=== PATIENT | female | born 1945 | race Caucasian/White ===

== ENCOUNTER 2017-06-26 13:17 | Emergency (ER) | payer MEDICARE, SELFPAY ==
--- NOTE | 2017-06-26 13:42 | ED.NEUROSD ---
HPI - Neuro Symptoms/Deficit General Chief Complaint: Neuro Symptoms/Deficit Stated Complaint: PATIENT STATES STROKE Time Seen by Provider: 06/26/17 13:41 Source: patient and family Mode of arrival: ambulatory Limitations: no limitations History of Present Illness HPI Narrative: 71-year-old female brought in by a family member is for concerns of a possible stroke. Patient's family is at bedside he states that earlier today they contacted the patient and they reported that the patient was repeating herself and not answering their questions appropriately. They state that the patient seemed confused. Initially denied drinking any alcohol however they were initially thinking that this was the issue. Upon arrival patient states that she does not remember the conversations. She states that she did have some drinks this morning. No trauma. No prior history of stroke. Related Data Home Medications Medication Instructions Recorded Confirmed ASPIRIN (Aspir-Low) 81 mg PO #0 01/05/12 Previous Rx's Medication Instructions Recorded metoprolol succinate 100 mg PO QDAY #90 tab 12/23/16 diltiazem HCl 60 mg PO QID #360 tab 02/03/17 ciprofloxacin HCl [Cipro] 500 mg PO BID #20 tab 03/07/17 metronidazole [Flagyl] 500 mg PO TID #30 03/07/17 pravastatin [Pravachol] 20 mg PO HS #90 tab 04/10/17 lisinopril 40 mg PO QDAY #90 tab 04/24/17 quetiapine 50 - 100 mg PO HS #60 tab 06/07/17 Allergies Allergy/AdvReac Type Severity Reaction Status Date / Time adhesive Allergy Mild FROM TAPE Verified 06/26/17 14:31 Review of Systems Constitutional Denies chills, Denies fever(s), Denies lethargy and Denies weakness ENT Ears, Nose, Mouth, and Throat: Denies dizziness Cardiovascular Denies chest pain, Denies irregular heart rhythm, Denies lightheadedness, Denies palpitations, Denies dyspnea, Denies dyspnea on exertion and Denies orthopnea Respiratory Denies cough, Denies dyspnea, Denies dyspnea on exertion and Denies wheezing Musculoskeletal Denies abnormal gait Integumentary/Breasts Denies pruritus, Denies erythema, Denies rash and Denies wounds Neurologic Reports abnormal speech, Denies abnormal gait, Reports behavioral changes, Reports confusion, Denies dizziness and Denies weakness Psychiatric Reports behavioral changes and Reports confusion Endocrine Denies palpitations Hematologic/Lymphatic Denies easy bruising Allergic/Immunologic Denies wheezing PFSH Surgical History History of spinal fusion S/P total abdominal hysterectomy and bilateral salpingo-oophorectomy Status post appendectomy Status post breast augmentation Family History Father CAD (coronary artery disease) Pacemaker Mother Lung cancer Grandfather Intestinal cancer Sister Ovarian cancer, Onset Age: 65 Sister Melanoma Social History Smoking Status: Former smoker Exam Initial Vital Signs Initial Vital Signs: Vital Signs Temperature 98 F 06/26/17 13:43 Pulse Rate 73 06/26/17 13:43 Respiratory Rate 20 06/26/17 13:43 Blood Pressure 175/82 H 06/26/17 13:43 Pulse Oximetry 95 06/26/17 13:43 HENMT Head: normocephalic and atraumatic Ears: external ears normal and TM's normal bilaterally Nose: external nose normal and No nasal discharge Face and sinus: sinuses nontender, face symmetric, no sinus tenderness and No dry mucous membranes Mouth: oral mucosae normal and moist mucous membranes Teeth and gingiva: dentition normal Throat: tonsils normal and uvula midline Resp Effort & Inspection: normal respiratory effort, able to speak in complete sentences, no respiratory distress and no use of accessory muscles Auscultation: clear to auscultation bilaterally, no rales, no rhonchi and no wheezes Cardio Rate: regular rate Rhythm: regular rhythm Heart Sounds: no click, no gallops, no murmurs and no rubs Pulses: normal peripheral pulses Skin General: no rashes or lesions noted, No jaundice and No petechiae Neuro General: alert, awake, oriented x3, gait normal and moves all extremities Cranial Nerves: CN's II-XI intact bilaterally Cognition: normal cognition Speech: speech normal Gait: normal gait Motor: muscle tone normal throughout and strength 5/5 throughout Sensory Exam: no sensory deficits noted Extrem General: full ROM, no clubbing, cyanosis or edema, no pedal edema and no calf tenderness Course Orders Ordered: ED Orders 06/26/17 13:49 CT head/brain wo con Stat 06/26/17 14:15 Complete Blood Count AUTO DIFF Stat Comprehensive Metabolic Panel Stat Ethanol (ETOH) Stat Partial Thromboplastin Time Stat Prothrombin Time INR Stat 06/26/17 14:25 Ammonia (NH3) Stat Discontinued Medications Sodium Chloride (Normal Saline 0.9%) 1,000 mls @ 150 mls/hr IV CONT FLORY Last Infusion: 06/26/17 15:12 Dose: 150 mls/hr Admin: 06/26/17 14:32 Dose: 150 mls/hr Vital Signs - 8 hr 06/26/17 13:43 06/26/17 15:16 Temperature 98 F 98 F Pulse Rate 73 74 Respiratory Rate 20 20 Blood Pressure 175/82 H 168/59 H Blood Pressure [Left Arm] 175/82 H Pulse Oximetry 95 94 MDM - Neuro Symptoms/Deficit Lab Data Attestation: I reviewed the patient's lab results. Result diagrams: 06/26/17 14:15 06/26/17 14:15 Lab Results 06/26/17 06/26/17 06/26/17 Range/Units 14:15 14:15 14:15 WBC 8.4 (4.5-11.0) X10^3/uL RBC 5.07 (4.0-5.2) X10^6/uL Hgb 16.1 H (12.0-16.0) g/dL Hct 46.4 H (36-46) % MCV 91.6 (80-100) fL MCH 31.7 (26-34) PG MCHC 34.6 (30-36) % RDW 14.2 (11.6-14.8) % Plt Count 116 L (150-400) X10^3/uL Neut % (Auto) Not Reportable Lymph % (Auto) Not Reportable Towner % (Auto) Not Reportable Eos % (Auto) Not Reportable Baso % (Auto) Not Reportable Total Counted 100 Seg Neutrophils % 23.0 L (38-70) % Lymphocytes % (Manual) 65.0 H (25-45) % Atypical Lymphs % 4.0 H ( - 0) % Monocytes % (Manual) 7.0 (2-11) % Eosinophils % (Manual) 1.0 L (2-4) % Neutrophils # (Manual) 1932 L (6302-4116) /uL Differential Comment Platelet clumping RBC Morphology Not Reportable PT 11.7 (10.1-12.7) SECONDS INR 1.1 (0.9-1.3) APTT 26 L (26.4-36.2) SECONDS Sodium 146 H (137-145) mmol/L Potassium 4.1 (3.4-5.1) mmol/L Chloride 104.0 (98-107) mmol/L Carbon Dioxide 29.0 (22-32) mmol/L BUN 15.0 (7-17) mg/dL Creatinine 0.60 (0.52-1.04) mg/dL Estimated GFR > 60.0 (>60) mL/min BUN/Creatinine Ratio 25.0 H (6-22) Glucose 93 (80-110) mg/dL Calcium 9.3 (8.4-10.2) mg/dL Total Bilirubin 0.4 (0.2-1.3) mg/dL AST 33 (14-36) IU/L ALT 36 (9-52) IU/L Alkaline Phosphatase 72 (38-126) U/L Ammonia (9-30) umol/L Total Protein 7.9 (6.3-8.2) g/dL Albumin 4.3 (3.5-5.0) g/dL Globulin 3.6 (1.7-4.1) g/dL Albumin/Globulin Ratio 1.2 (1.0-2.8) Ethyl Alcohol 204 mg/dL / Range/Units 14:25 WBC (4.5-11.0) X10^3/uL RBC (4.0-5.2) X10^6/uL Hgb (12.0-16.0) g/dL Hct (36-46) % MCV (80-100) fL MCH (26-34) PG MCHC (30-36) % RDW (11.6-14.8) % Plt Count (150-400) X10^3/uL Neut % (Auto) Lymph % (Auto) Towner % (Auto) Eos % (Auto) Baso % (Auto) Total Counted Seg Neutrophils % (38-70) % Lymphocytes % (Manual) (25-45) % Atypical Lymphs % ( - 0) % Monocytes % (Manual) (2-11) % Eosinophils % (Manual) (2-4) % Neutrophils # (Manual) (2769-6111) /uL Differential Comment RBC Morphology PT (10.1-12.7) SECONDS INR (0.9-1.3) APTT (26.4-36.2) SECONDS Sodium (137-145) mmol/L Potassium (3.4-5.1) mmol/L Chloride (98-107) mmol/L Carbon Dioxide (22-32) mmol/L BUN (7-17) mg/dL Creatinine (0.52-1.04) mg/dL Estimated GFR (>60) mL/min BUN/Creatinine Ratio (6-22) Glucose (80-110) mg/dL Calcium (8.4-10.2) mg/dL Total Bilirubin (0.2-1.3) mg/dL AST (14-36) IU/L ALT (9-52) IU/L Alkaline Phosphatase (38-126) U/L Ammonia 22.0 (9-30) umol/L Total Protein (6.3-8.2) g/dL Albumin (3.5-5.0) g/dL Globulin (1.7-4.1) g/dL Albumin/Globulin Ratio (1.0-2.8) Ethyl Alcohol mg/dL Imaging Data CT scan - head: Radiologist's impression: PROCEDURE: CT HEAD/BRAIN WO CON INDICATIONS: Altered mental status TECHNIQUE: Noncontrast 4.5 mm thick angled axial sections acquired from the foramen magnum to the vertex, with coronal and sagittal reformats. For radiation dose reduction, the following was used: automated exposure control, adjustment of mA and/or kV according to patient size. COMPARISON: None. FINDINGS: Image quality: Excellent. CSF spaces: Basal cisterns are patent. No extra-axial fluid collections. The ventricles are symmetric in size and shape. Brain: No intracranial bleeds or masses. There is cerebral volume loss for age, with resultant ventricular and sulcal prominence. There are periventricular and deep white matter chronic small vessel ischemic changes. There is intracranial internal carotid artery atherosclerosis. Skull and face: Calvarium and visualized facial bones appear intact, without suspicious lesions. Sinuses: Visualized sinuses and mastoids are clear. IMPRESSION: No acute intracranial disease process. Dictated by: Gaby Davila MD, PhD on 06/26/2017 at 13:09 MDM Narrative Medical decision making narrative: Patient had a normal neurologic exam at the time of my exam. Was alert and oriented. Head CT is unremarkable. Does have an elevated alcohol level. Secondary to the patient's history and physical exam I suspect that her slurring of her words earlier today was the result of an alcohol intoxication. Had a long discussion with the patient and her family regarding an acute admission for alcohol detox. Patient declined this offer and states that she would go home with her sister who was at bedside. The sister agreed to take the patient home and watch her and talk with the primary doctor about further evaluation. They are given return precautions. Will hold on further workup for now. No indication for admission. Exam is not consistent with TIA. Discharge Plan Departure Patient Disposition: Home, Self-Care Clinical Impression: Alcohol intoxication Discharge Date/Time: 06/26/17 15:17 Interventions: ED Discharge Assessment Last Done: 06/26/17 15:16 Instructions: Alcoholism (Alternative Therapy), Alcohol Use Disorder, DI for Alcohol Abuse Activity Restrictions/Additional Instructions: You are not to drive for the next 24 hr or in the future if you consume intoxicating substances. You are being discharged today under the care of your family. Highly recommend that you seek help for your alcohol use. You may return to the emergency department for any new or worsening symptoms Prescriptions: No Action ASPIRIN (Aspir-Low) 81 mg PO Qty: 0 RF: 0 metoprolol succinate 100 MG tablet extended release 24 hr 100 mg PO QDAY Qty: 90 RF: 1 diltiazem HCl 60 MG tablet 60 mg PO QID Qty: 360 RF: 1 metronidazole [Flagyl] 500 MG tablet 500 mg PO TID Qty: 30 RF: 0 ciprofloxacin HCl [Cipro] 500 MG tablet 500 mg PO BID Qty: 20 RF: 0 pravastatin [Pravachol] 20 MG tablet 20 mg PO HS Qty: 90 RF: 0 lisinopril 40 MG tablet 40 mg PO QDAY Qty: 90 RF: 0 quetiapine 50 mg tablet 50 - 100 mg PO HS Qty: 60 RF: 6
[2017-06-26 13:43] VITALS: BP 175/82; PULSE 73; RESP 20; TEMP 36.6; O2SAT 95
--- NOTE | 2017-06-26 13:49 | DI.CT.S_ITS ---
PROCEDURE: CT HEAD/BRAIN WO CON INDICATIONS: Altered mental status TECHNIQUE: Noncontrast 4.5 mm thick angled axial sections acquired from the foramen magnum to the vertex, with coronal and sagittal reformats. For radiation dose reduction, the following was used: automated exposure control, adjustment of mA and/or kV according to patient size. COMPARISON: None. FINDINGS: Image quality: Excellent. CSF spaces: Basal cisterns are patent. No extra-axial fluid collections. The ventricles are symmetric in size and shape. Brain: No intracranial bleeds or masses. There is cerebral volume loss for age, with resultant ventricular and sulcal prominence. There are periventricular and deep white matter chronic small vessel ischemic changes. There is intracranial internal carotid artery atherosclerosis. Skull and face: Calvarium and visualized facial bones appear intact, without suspicious lesions. Sinuses: Visualized sinuses and mastoids are clear. IMPRESSION: No acute intracranial disease process. Dictated by: Gaby Davila MD, PhD on 06/26/2017 at 13:09 Approved by: Gaby Davila MD, PhD on 06/26/2017 at 13:13
[2017-06-26 14:22] LABS: Hematocrit 46.4 % (36-46); Hemoglobin 16.1 g/dL (12.0-16.0); Mean Corpuscular HGB Conc 34.6 % (30-36); Mean Corpuscular Hemoglobin 31.7 PG (26-34); Mean Corpuscular Volume 91.6 fL (80-100); Platelet Count 116 X10^3/uL (150-400); Red Blood Cell Count 5.07 X10^6/uL (4.0-5.2); Red Cell Distribution Width 14.2 % (11.6-14.8); White Blood Cell Count 8.4 X10^3/uL (4.5-11.0)
[2017-06-26 14:23] LABS: Add Manual Diff / Slide Review YES
[2017-06-26 14:26] LABS: INR 1.1 (0.9-1.3); Prothrombin Time 11.7 SECONDS (10.1-12.7)
[2017-06-26 14:28] LABS: PTT Partial Thromboplastin Tim 26 SECONDS (26.4-36.2)
[2017-06-26] MEDS: SODIUM CHLORIDE 0.9% 1,000 ML 150 ML IV (14:32)
[2017-06-26 14:36] LABS: Alanine Aminotransferase 36 IU/L (9-52); Albumin 4.3 g/dL (3.5-5.0); Albumin Globulin Ratio 1.2 (1.0-2.8); Alkaline Phosphatase 72 U/L (38-126); Aspartate Aminotransferase 33 IU/L (14-36); Bilirubin Total 0.4 mg/dL (0.2-1.3); Calcium 9.3 mg/dL (8.4-10.2); Estimated Glomerular Filt Rate > 60.0 mL/min (>60); Ethanol (ETOH) 204 mg/dL; Globulin 3.6 g/dL (1.7-4.1); Glucose 93 mg/dL (80-110); HEMOLYSIS < 15 (0-50); Potassium 4.1 mmol/L (3.4-5.1); Sodium 146 mmol/L (137-145); Total Protein 7.9 g/dL (6.3-8.2)
[2017-06-26 14:40] LABS: Neutrophils Absolute Manual 1932 /uL (3000-5900); Total Cells Counted 100
[2017-06-26 14:41] LABS: Morphology Comment PLATELET CLUMPING
[2017-06-26 15:16] VITALS: BP 168/59; PULSE 74; RESP 20; TEMP 36.6; O2SAT 94
== END 2017-06-26 15:17 | disposition home or self-care (01) ==
PROVIDERS: Emergency Provider Emergency Medicine; PCP Internal Medicine
DX: F10.929 Alcohol use, unspecified with intoxication, unspecified (principal)
CPT/HCPCS: 36415; 36591; 70450; 80053; 80320; 82140; 85025; 85610; 85730; 96360; 99283; 99284; 99291

== ENCOUNTER → 2017-07-04 09:49 | Outpatient (CLI) | payer MEDICARE, SELFPAY | PROVIDERS: PCP Internal Medicine; Visit Provider Student in an Organized Health Care Education/Training Program | DX: I10 Essential (primary) hypertension (principal); E78.5 Hyperlipidemia, unspecified; Z53.9 Procedure and treatment not carried out, unspecified reason ==

== ENCOUNTER → 2017-07-05 08:34 | Outpatient (CLI) | payer MEDICARE, SELFPAY ==
[2017-07-05 09:32] LABS: Add Manual Diff / Slide Review NO; Eosinophils Percent Auto 1.6 % (2-4); Hematocrit 44.6 % (36-46); Hemoglobin 15.3 g/dL (12.0-16.0); Mean Corpuscular HGB Conc 34.3 % (30-36); Mean Corpuscular Hemoglobin 31.3 PG (26-34); Mean Corpuscular Volume 91.3 fL (80-100); Monocytes Percent Auto 9.8 % (3-14); Neutrophils Absolute Auto 4400 /uL (3000-5900); Neutrophils Percent Auto 58.6 % (50-75); Platelet Count 260 X10^3/uL (150-400); Red Blood Cell Count 4.89 X10^6/uL (4.0-5.2); White Blood Cell Count 7.5 X10^3/uL (4.5-11.0)
[2017-07-05 09:56] LABS: Alanine Aminotransferase 26 IU/L (9-52); Albumin 4.4 g/dL (3.5-5.0); Albumin Globulin Ratio 1.4 (1.0-2.8); Alkaline Phosphatase 68 U/L (38-126); Aspartate Aminotransferase 25 IU/L (14-36); BUN Creatinine Ratio 25.7 (6-22); Bilirubin Total 0.5 mg/dL (0.2-1.3); Blood Urea Nitrogen 18 mg/dL (7-17); Calcium 10.5 mg/dL (8.4-10.2); Carbon Dioxide 29 mmol/L (22-32); Chloride 98 mmol/L (98-107); Cholesterol 163 mg/dL (140-199); Estimated Glomerular Filt Rate > 60.0 mL/min (>60); Globulin 3.2 g/dL (1.7-4.1); Glucose 105 mg/dL (80-110); HDL Cholesterol 47 mg/dL (40-60); HEMOLYSIS < 15 (0-50); LDL Cholesterol Calculated 92 mg/dL (<100); Potassium 4.7 mmol/L (3.4-5.1); Sodium 139 mmol/L (137-145); Total Protein 7.6 g/dL (6.3-8.2); Triglycerides 118 mg/dL (35-150)
== END ==
PROVIDERS: PCP Internal Medicine; Visit Provider Student in an Organized Health Care Education/Training Program
DX: I10 Essential (primary) hypertension (principal); E78.5 Hyperlipidemia, unspecified
CPT/HCPCS: 36415; 80053; 80061; 85025

== ENCOUNTER → 2019-02-18 13:20 | Outpatient (CLI) | payer MEDICARE, SELFPAY ==
[2019-02-18 15:10] LABS: Add Manual Diff / Slide Review NO; Basophils Absolute Auto 100 /uL (0-100); Eosinophils Absolute Auto 100 /uL (0-450); Eosinophils Percent Auto 1.4 % (2-4); Hematocrit 48.6 % (36-46); Hemoglobin 16.6 g/dL (12.0-16.0); Lymphocytes Absolute Auto 2400 /uL (1100-4500); Lymphocytes Percent Auto 26.3 % (25-40); Mean Corpuscular HGB Conc 34.1 % (30-36); Mean Corpuscular Hemoglobin 31.8 PG (26-34); Mean Corpuscular Volume 93.2 fL (80-100); Monocytes Absolute Auto 800 /uL (0-900); Monocytes Percent Auto 9.1 % (3-14); Neutrophils Absolute Auto 5700 /uL (1500-7000); Neutrophils Percent Auto 62.2 % (50-75); Platelet Count 328 X10^3/uL (150-400); Red Blood Cell Count 5.22 X10^6/uL (4.0-5.2); Red Cell Distribution Width 13.5 % (11.6-14.8); White Blood Cell Count 9.2 X10^3/uL (4.5-11.0)
[2019-02-18 16:01] LABS: Alanine Aminotransferase 33 IU/L (<35); Albumin 4.6 g/dL (3.5-5.0); Albumin Globulin Ratio 1.5 (1.0-2.8); Alkaline Phosphatase 99 U/L (38-126); Aspartate Aminotransferase 33 IU/L (14-36); BUN Creatinine Ratio 27.1 (6-22); Bilirubin Total 0.6 mg/dL (0.2-1.3); Blood Urea Nitrogen 19 mg/dL (7-17); Calcium 10.8 mg/dL (8.4-10.2); Carbon Dioxide 29 mmol/L (22-32); Chloride 101 mmol/L (98-107); Cholesterol 206 mg/dL (140-199); Estimated Glomerular Filt Rate > 60.0 mL/min (>60); Globulin 3.1 g/dL (1.7-4.1); Glucose 95 mg/dL (80-110); HDL Cholesterol 39 mg/dL (40-60); HEMOLYSIS < 15 (0-50); LDL Cholesterol Calculated 138 mg/dL (<100); Potassium 4.8 mmol/L (3.4-5.1); Sodium 140 mmol/L (137-145); Total Protein 7.7 g/dL (6.3-8.2); Triglycerides 147 mg/dL (35-150)
== END ==
PROVIDERS: PCP Internal Medicine; Visit Provider Student in an Organized Health Care Education/Training Program
DX: I10 Essential (primary) hypertension (principal); E78.5 Hyperlipidemia, unspecified
CPT/HCPCS: 36415; 80053; 80061; 85025

== ENCOUNTER → 2019-05-20 07:51 | Outpatient (CLI) | payer MEDICARE, SELFPAY ==
[2019-05-20 09:13] LABS: Add Manual Diff / Slide Review NO; Basophils Absolute Auto 0 /uL (0-100); Basophils Percent Auto 0.5 % (0-2); Eosinophils Absolute Auto 200 /uL (0-450); Eosinophils Percent Auto 1.9 % (2-4); Hematocrit 46.1 % (36-46); Hemoglobin 15.3 g/dL (12.0-16.0); Lymphocytes Absolute Auto 2800 /uL (1100-4500); Lymphocytes Percent Auto 33.5 % (25-40); Mean Corpuscular HGB Conc 33.2 % (30-36); Mean Corpuscular Hemoglobin 30.8 PG (26-34); Mean Corpuscular Volume 92.7 fL (80-100); Monocytes Absolute Auto 600 /uL (0-900); Monocytes Percent Auto 6.9 % (3-14); Neutrophils Absolute Auto 4800 /uL (1500-7000); Neutrophils Percent Auto 57.2 % (50-75); Platelet Count 307 X10^3/uL (150-400); Red Blood Cell Count 4.97 X10^6/uL (4.0-5.2); Red Cell Distribution Width 13.1 % (11.6-14.8); White Blood Cell Count 8.4 X10^3/uL (4.5-11.0)
[2019-05-20 09:35] LABS: Alanine Aminotransferase 20 IU/L (<35); Albumin 4.3 g/dL (3.5-5.0); Albumin Globulin Ratio 1.3 (1.0-2.8); Alkaline Phosphatase 71 U/L (38-126); Aspartate Aminotransferase 25 IU/L (14-36); BUN Creatinine Ratio 26.7 (6-22); Bilirubin Total 0.5 mg/dL (0.2-1.3); Blood Urea Nitrogen 16 mg/dL (7-17); Carbon Dioxide 29 mmol/L (22-32); Chloride 103 mmol/L (98-107); Cholesterol 176 mg/dL (140-199); Estimated Glomerular Filt Rate > 60.0 mL/min (>60); Globulin 3.4 g/dL (1.7-4.1); Glucose 114 mg/dL (80-110); HDL Cholesterol 32 mg/dL (40-60); HEMOLYSIS < 15 (0-50); LDL Cholesterol Calculated 115 mg/dL (<100); Potassium 3.8 mmol/L (3.4-5.1); Sodium 142 mmol/L (137-145); Total Protein 7.7 g/dL (6.3-8.2); Triglycerides 145 mg/dL (35-150)
== END ==
PROVIDERS: PCP Internal Medicine; Referring Provider Student in an Organized Health Care Education/Training Program; Visit Provider Student in an Organized Health Care Education/Training Program
DX: I10 Essential (primary) hypertension (principal); E78.5 Hyperlipidemia, unspecified
CPT/HCPCS: 36415; 80053; 80061; 85025

== ENCOUNTER → 2019-11-12 09:08 | Outpatient (CLI) | payer MEDICARE, SELFPAY ==
--- NOTE | 2019-11-12 | DI.RAD.S_ITS ---
PROCEDURE: XR CERVICAL SPINE 4V OR 5V INDICATIONS: Cervicalgia TECHNIQUE: 5 views of the cervical spine acquired. COMPARISON: None. FINDINGS: Bones: No fractures or dislocations to the T2 level. There is osseous fusion of C5 through C7. Multilevel spondylitic changes visualized from C2-3 through C4-5 with associated facet arthrosis. Findings are most pronounced at C4-5. C1-C2 relationship is preserved. Oblique images demonstrate mild bony foraminal stenoses involving the fused segments. Soft tissues: No prevertebral soft tissue swelling. IMPRESSION: 1. Cervical spine without acute fracture or dislocation. 2. Multilevel cervical spondylosis most prominent at C4-5. 3. Osseous fusion of C5 through C7 with associated bilateral neuroforaminal narrowing. Dictated by: Rafi Frazier M.D. on 11/12/2019 at 10:04 Approved by: Rafi Frazier M.D. on 11/12/2019 at 10:08
== END ==
PROVIDERS: PCP Student in an Organized Health Care Education/Training Program; Referring Provider Student in an Organized Health Care Education/Training Program; Visit Provider Student in an Organized Health Care Education/Training Program
DX: M54.2 Cervicalgia (principal); M47.812 Spondylosis without myelopathy or radiculopathy, cervical region; M43.22 Fusion of spine, cervical region; M48.02 Spinal stenosis, cervical region
CPT/HCPCS: 72050

== ENCOUNTER → 2020-08-14 16:14 | Outpatient (CLI) | payer OTHER, SELFPAY ==
--- NOTE | 2020-08-14 | DI.RAD.S_ITS ---
PROCEDURE: XR HIP W PEL IF DONE LT 2V INDICATIONS: Left Hip Pain TECHNIQUE: Two views of the hip were acquired. COMPARISON: None. FINDINGS: Moderate left and severe right femoroacetabular osteoarthritis characterized by joint space narrowing and marginal osteophytosis. On the right there is subchondral sclerosis and subchondral cystic changes well as some flattening of the superior femoral head surface. 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 Dictated by: Rod Zamora M.D. on 08/14/2020 at 16:59 Approved by: Rod Zamora M.D. on 08/14/2020 at 16:59
== END ==
PROVIDERS: PCP Student in an Organized Health Care Education/Training Program; Referring Provider Internal Medicine; Visit Provider Internal Medicine
DX: M25.552 Pain in left hip (principal); M16.12 Unilateral primary osteoarthritis, left hip
CPT/HCPCS: 73502

== ENCOUNTER → 2020-11-11 08:32 | Outpatient (CLI) | payer OTHER, SELFPAY ==
--- NOTE | 2020-11-11 | DI.RAD.S_ITS ---
PROCEDURE: XR LUMBAR SPINE 2-3V INDICATIONS: Pain in thoracic spine TECHNIQUE: 3 views of the lumbar spine were acquired. COMPARISON: [facility], CR, L-SPINE 2-3 VIEWS, 09/01/2015, 12:12. [facility], CR, L-SPINE 2-3 VIEWS, 07/16/2013, 14:44. FINDINGS: Bones: 5 [id number] vertebrae are present. There is normal bony alignment. No vertebral body compression fractures. No suspicious bony lesions. There are multilevel degenerative changes. There is disc disease at L4-5 and L5-S1 with disc space narrowing at these levels. Soft tissues: Overlying bowel gas pattern is normal. No suspicious soft tissue calcifications. The aorta has atherosclerotic calcifications. IMPRESSION: Multilevel degenerative changes with disc disease at L4-5 and L5-S1. Dictated by: Dirk Mar M.D. on 11/11/2020 at 10:09 Approved by: Dirk Mar M.D. on 11/11/2020 at 10:11
--- NOTE | 2020-11-11 | DI.RAD.S_ITS ---
PROCEDURE: XR THORACIC SPINE 3V INDICATIONS: Pain in thoracic spine TECHNIQUE: 3 views of the thoracic spine were acquired. COMPARISON: [facility], , THORACIC SPINE 3 VIEWS, 07/16/2013, 14:44. FINDINGS: Bones: No fractures or dislocations. The thoracic spine has multilevel degenerative changes. Disc disease is seen at multi levels. No suspicious bony lesions. 12 pairs of ribs are noted, and appear intact where visualized. Soft tissues: No paravertebral stripe thickening. IMPRESSION: Multilevel degenerative changes of the thoracic spine. There is disc disease at multiple levels. Dictated by: Dirk Mar M.D. on 11/11/2020 at 10:01 Approved by: Dirk Mar M.D. on 11/11/2020 at 10:06
== END ==
PROVIDERS: PCP Student in an Organized Health Care Education/Training Program; Referring Provider Student in an Organized Health Care Education/Training Program; Visit Provider Student in an Organized Health Care Education/Training Program
DX: M51.34 Other intervertebral disc degeneration, thoracic region (principal); M51.36 Other intervertebral disc degeneration, lumbar region; M48.061 Spinal stenosis, lumbar region without neurogenic claudication; M51.37 Other intervertebral disc degeneration, lumbosacral region; M48.07 Spinal stenosis, lumbosacral region
CPT/HCPCS: 72072; 72100

== ENCOUNTER → 2022-04-14 13:38 | Outpatient (CLI) | payer OTHER, SELFPAY ==
--- NOTE | 2022-04-14 | DI.RAD.S_ITS ---
PROCEDURE: XR CERVICAL SPINE 2V OR 3V INDICATIONS: SHOULDER PAIN TECHNIQUE: 3 view(s) of the cervical spine were acquired. COMPARISON: MR, C-SPINE WITHOUT CONTRAST, 09/08/2010, 18:01. [facility], , XR CERVICAL SPINE 4V OR 5V, 11/12/2019, 8:22. FINDINGS: Bones: No fractures or dislocations to the is 7 level. Trace anterolisthesis of C4 on C5. There is fusion of C5-C7. The lateral masses of C1 appear intact on the odontoid view. No suspicious bony lesions. There is moderate degenerative disc disease at C4-C5, and mild degenerative disease at C2-C3 and C3-C4. Bilateral facet arthropathy, most pronounced and severe at C2-C3 on the left and C3-C4 and C4-C5 bilaterally. Soft tissues: No prevertebral soft tissue swelling. IMPRESSION: 1. Severe degenerative changes in cervical spine. 2. Fusion of C5-C7. Dictated by: Leon Cutler M.D. on 04/15/2022 at 8:44 Approved by: Leon Cutler M.D. on 04/15/2022 at 8:56
--- NOTE | 2022-04-14 | DI.RAD.S_ITS ---
PROCEDURE: XR SHOULDER LT MIN 2V INDICATIONS: SHOULDER PAIN TECHNIQUE: 3 views of the shoulder were acquired. COMPARISON: None. FINDINGS: Bones: No fractures or dislocations. Possible surgical resection of the distal clavicle. There is a large osteophyte over the humeral head. There is moderate acromioclavicular and glenoid humeral joint degeneration. No suspicious bony lesions. Visualized ribs appear intact. Soft tissues: Calcifications over the humeral head consistent with rotator cuff calcific tendinitis. IMPRESSION: 1. Moderate degenerative joint disease. If clinical symptoms persist or clinical suspicion for internal derangement is high, MRI is suggested for further evaluation. 2. Rotator cuff calcific tendinitis. Dictated by: Leon Cutler M.D. on 04/15/2022 at 8:32 Approved by: Leon Cutler M.D. on 04/15/2022 at 8:52
== END ==
PROVIDERS: PCP Student in an Organized Health Care Education/Training Program; Referring Provider Student in an Organized Health Care Education/Training Program; Visit Provider Student in an Organized Health Care Education/Training Program
DX: M75.32 Calcific tendinitis of left shoulder (principal); M25.512 Pain in left shoulder; M19.012 Primary osteoarthritis, left shoulder; G89.29 Other chronic pain
CPT/HCPCS: 72040; 73030

== ENCOUNTER → 2023-09-06 10:17 | Outpatient (CLI) | payer MEDICARE, SELFPAY ==
--- NOTE | 2023-09-06 10:19 | DI.RAD.S_ITS ---
PROCEDURE: XR CHEST 2V INDICATIONS: COVID-19 TECHNIQUE: 2 views of the chest were acquired. COMPARISON: [facility], , CHEST 2 VIEW, 03/08/2016, 12:36. FINDINGS: Surgical changes and devices: Bilateral breast implants with calcified capsules. Lungs and pleura: Mild bibasilar hazy opacities. No pleural effusions or pneumothorax. Mediastinum: Mediastinal contours are normal. Heart size is normal. Aortic arthrosclerosis. Bones and chest wall: No suspicious bony abnormalities. Soft tissues appear unremarkable. IMPRESSION: Bibasilar hazy opacities. This may be on the basis of atelectasis and/or infiltrates. Dictated by: Ramy Breen M.D. on 09/06/2023 at 15:52 Approved by: Ramy Breen M.D. on 09/06/2023 at 15:57
== END ==
PROVIDERS: PCP Student in an Organized Health Care Education/Training Program; Referring Provider Student in an Organized Health Care Education/Training Program; Visit Provider Student in an Organized Health Care Education/Training Program
DX: U07.1 COVID-19 (principal); R05.1 Acute cough; I70.0 Atherosclerosis of aorta
CPT/HCPCS: 71046

== ENCOUNTER → 2023-10-11 11:52 | Outpatient (CLI) | payer MEDICARE, SELFPAY ==
--- NOTE | 2023-10-11 11:56 | DI.RAD.S_ITS ---
PROCEDURE: XR HIP W PEL IF DONE LT 2V INDICATIONS: Trochanteric bursitis, left hip TECHNIQUE: AP pelvis with lateral view(s) of the left hip(s). COMPARISON: [facility], , XR HIP W PEL IF DONE LT 2V, 08/14/2020, 16:25. FINDINGS: Bones: No fractures or dislocations. Pelvic ring appears intact. No suspicious bony lesions. Moderate to severe bilateral degenerative hip joint space narrowing most severe on the right. Subchondral sclerosis and periarticular osteophytes are present. No erosions. Degenerative changes are present within the lower lumbar spine. Overall appearance is stable versus minimally progressive. Soft tissues: The visualized bowel gas pattern is normal. No suspicious soft tissue calcifications. IMPRESSION: Stable versus minimally progressive appearance of moderate to severe bilateral hip arthritic change. Dictated by: Noy Linder M.D. on 10/11/2023 at 15:57 Approved by: Noy Linder M.D. on 10/11/2023 at 15:58
== END ==
PROVIDERS: PCP Family Medicine
DX: M70.62 Trochanteric bursitis, left hip (principal)
CPT/HCPCS: 73502

== ENCOUNTER → 2023-11-01 12:08 | Outpatient (CLI) | payer MEDICARE, SELFPAY ==
--- NOTE | 2023-11-01 12:10 | DI.CT.S_ITS ---
PROCEDURE: CT LUNG LOW DOSE SCREENING INDICATIONS: Nicotine dependence, cigarettes, uncomplicated TECHNIQUE: Noncontrast 2.0-2.5 mm thick sections acquired from the pulmonary apices to the posterior costophrenic angles. 7 mm thick axial MIP, and 5 mm coronal and sagittal reformats were then acquired. For radiation dose reduction, the following was used: automated exposure control, adjustment of mA and/or kV according to patient size. COMPARISON: [facility], CT, CT CHEST WITHOUT CONTRAST, 11/24/2017, 13:43. FINDINGS: Image quality: Diagnostic. Lower Neck: No enlarged lymph nodes. Thyroid: No thyroid nodules which require sonographic follow up, per consensus guidelines. Axillae: No enlarged lymph nodes. Chest Wall: Bilateral breast implants with extensive capsular calcifications. Bones: Multilevel degenerative changes in the thoracic spine. Lungs and Pleura: No pneumothorax or pleural effusions. Confluent centrilobular emphysema. Benign calcified granulomas are present. A densely calcified irregular lesion is seen at the medial right lower lobe. Left lower lobe clustered nodules on CT from 11/24/2017 have resolved. No consolidation or suspicious nodules. Heart: Heart size is normal. Trace pericardial effusion. Mild coronary artery calcifications. Thoracic Vessels: The aorta and pulmonary arteries demonstrate normal size. Mediastinum and Ilda: No enlarged lymph nodes. Esophagus: No wall thickening. No hiatal hernia. Upper Abdomen: Visualized upper abdomen solid organs and bowel loops appear normal. IMPRESSION: No suspicious pulmonary nodules. LUNG-RADS 2; continued annual screening, if eligible. Clinically Significant Non-pulmonary Findings: None. Approved by: Doug Davis M.D. on 11/01/2023 at 21:59
== END ==
PROVIDERS: PCP Family Medicine; Referring Provider Family Medicine; Visit Provider Family Medicine
DX: F17.210 Nicotine dependence, cigarettes, uncomplicated (principal); Z12.2 Encounter for screening for malignant neoplasm of respiratory organs; I25.10 Atherosclerotic heart disease of native coronary artery without angina pectoris; J43.2 Centrilobular emphysema
CPT/HCPCS: 71271

== ENCOUNTER 2024-08-12 13:49 | Emergency (ER) | payer MEDICARE, SELFPAY ==
[2024-08-12 14:11] VITALS: BP 167/72; PULSE 75; RESP 18; TEMP 36.8; O2SAT 96; BMI 17.7
--- NOTE | 2024-08-12 15:23 | ED_ITS ---
<Statement entered by Mane Tate, DO - 08/12/24 18:42> Co-Sign Statement I was available for consultation during this patient's emergency department visit. This chart is signed by myself for administrative purposes only. I do not have direct contact with this patient during this visit. They were seen by the APC independently. HPI - Skin/Abscess/Foreign Bdy General Chief complaint: Skin/Abscess/Foreign Body Stated complaint: infected, Rt middle finger Time Seen by Provider: 08/12/24 14:18 Source: patient Mode of arrival: Ambulatory Limitations: no limitations History of Present Illness HPI narrative: This is a 78-year-old woman with a history of dementia who presents with her daughter with concern for finger pain for 7 days. Daughter states that her mom had her nails done on Monday last week and that night she reported that the woman who had done her nails ?hurt her? showing that she bent her finger at the distal joint and press down on her nail causing pain at the base of the nail. Daughter states that the next morning her lower finger (3rd finger on the right hand) looked swollen and there was a little bit of redness at the base of the nail. Since that time symptoms have not improved and patient continues to complain of pain. Patient states that she does not want to bend it because it was more painful when she bends it. Related Data Home Medications ?Medication ?Instructions ?Recorded ?Confirmed ASPIRIN (Aspir-Low) 81 mg PO ##0 01/05/12 Previous Rx's ?Medication ?Instructions ?Recorded diltiazem HCl 60 mg tablet 60 mg PO QID #360 tabs 01/07 10/23 ciprofloxacin HCl 500 mg tablet 500 mg PO BID #20 tabs 03/07/17 (Cipro) metronidazole 500 mg tablet 500 mg PO TID ##30 8 (Flagyl) quetiapine 50 mg tablet 50 - 100 mg (1 - 2 x 50 mg) PO HS 06/07/17 #60 tabs metoprolol succinate 100 mg 100 mg PO QDAY #30 tabs tablet,extended release 24 hr pravastatin 20 mg tablet 20 mg PO HS #30 tabs 8 (Pravachol) lisinopril 40 mg tablet 40 mg PO QDAY #15 tabs 06/17 cephalexin 500 mg capsule 500 mg PO TID 5 days #15 cap s 08/12/24 Allergies Allergy/AdvReac Type Severity Reaction Status Date / Time adhesive Allergy Mild FROM TAPE Verified 08/12/24 14:13 Review of Systems Review of Systems Narrative: See HPI Patient History Surgical History Status post breast augmentation History of spinal fusion Status post appendectomy S/P total abdominal hysterectomy and bilateral salpingo-oophorectomy Family History Father CAD (coronary artery disease) Pacemaker Mother Lung cancer Grandfather Intestinal cancer Sister Ovarian cancer Sister Melanoma Social History Smoking Status: Current every day smoker Smoking Status: Current every day smoker alcohol intake frequency: 0-2 drinks per day Exam Narrative Exam Narrative: GENERAL: [78] year old patient appears stated age. Well-developed patient, in mild distress. Patient has dementia difficulty with questions and following instructions, daughter assists. HEAD: Atraumatic. Normocephalic. EYES: Pupils equal round and reactive. Extraocular motions intact. No scleral icterus. No injection or drainage. ENT: Nose without bleeding, purulent drainage. Airway patent. NECK: Trachea midline. CARDIOVASCULAR: Regular rate and rhythm without murmurs, gallops, or rubs. RESPIRATORY: Clear to auscultation. Breath sounds equal bilaterally. No wheezes, rales, or rhonchi. EXTREMITIES: On the affected right middle finger there is mild swelling present of the distal finger from just distal to the PIP. There is very slight erythema proximal to the lunula over the cuticle. There is a very slight opaque region at the cuticle possibly consistent with a developing paronychia that is tender. The nail bed itself is tender most notably at the proximal nail bed. There is no subungual hematoma or bruising to the nail noted. Fingernail Swedish is absent from this nail. Patient has no tenderness with palpation over the D IP. She does have reduced range of motion 2nd to hesitancy particularly at the D IP of the middle finger. Stating it hurts when she bends it all the way. No edema or joint tenderness. NEURO: AOx3. SKIN: See extremities. No rash or erythema of visible areas Initial Vital Signs Initial Vital Signs: Vital Signs Temperature 98.2 F 08/12/24 14:11 Pulse Rate 75 08/12/24 14:11 Respiratory Rate 18 08/12/24 14:11 Blood Pressure 167/72 H 08/12/24 14:11 Pulse Oximetry 96 08/12/24 14:11 Oxygen Delivery Method Room Air 08/12/24 14:11 Course Vital Signs Vital signs: Vital Signs - 8 hr 08/12/24 14:11 08/12/24 16:05 Temperature 98.2 F Pulse Rate 75 70 Respiratory Rate 18 18 Blood Pressure 167/72 H 210/85 H Pulse Oximetry 96 98 Oxygen Delivery Method Room Air Room Air MDM - Skin/Abscess/Foreign Bdy Differential Diagnosis Differential diagnosis: Likely other (Paronychia, sprain, strain) Treatment and disposition Shared decision making:: We discussed evaluation and treatment plan today with the patient and daughter. Patient's daughter prefers not to obtain an x-ray today. I think it is unlikely patient has sustained any kind of a fracture from the injury she described. Plan for re-evaluation with imaging with PCP if she has not improving in the next couple of days with treatments recommended today. MDM Narrative Medical decision making narrative: This is a 78-year-old woman with a history of dementia and hypertension and COPD coming in with her daughter with concern for a finger injury/pain. Injury to the nail bed per patient 8 days ago. Patient has some swelling and tenderness at the proximal nail nail bed. Distal finger is mildly swollen. Concern for infection, possibly developing paronychia versus sprain/strain. We discussed x- rays however daughter declines having these done today. I think this is reasonable as the mechanism seems unlikely to have caused a fracture. Do place patient in a splint for comfort recommend warm Epsom salt soaks twice daily. At this time there is no indication for incision and drainage based on exam. Prescription for cephalexin. Advised probiotics. Return precautions provided, follow-up plan discussed, all questions answered. Discharge Plan Departure Patient Disposition: Home Clinical Impression: Finger infection, Finger pain, right Activity Restrictions/Additional Instructions: *You have been diagnosed with [finger infection, possible sprain] *What to do: *Please continue to take your regular medications as directed. [ X] New medication prescriptions sent to your pharmacy: [Cephalexin] [ ] New medication written as a paper prescription [ ] No new medications given *Please follow up with your primary care provider in 2-3 days, call for an appointment. Let them know you were seen in the Emergency Department and that we ask that you be seen in follow up. We will electronically transmit a record of today's note if your PCP is in our system. Rhea came in today with concern for finger pain for the past week. After having her nails worked on. We did not obtain x-rays today after discussion, however if her symptoms are not improving in the next few days do recommend that she have x-rays done. I think it is unlikely she sustained a fracture from the injury described most likely this could be a sprain and that is mild in addition to a infection at the base of her nail. Recommend warm Epsom salt soaks twice daily and I also did prescribe cephalexin antibiotics. I would encourage her to take foods that are for mental/cultured such as yogurt or have probiotics while she was on the antibiotics. There was no indication to drain this area today in the infection looks fairly mild however given the pain she is having reasonable to do antibiotics and the warm Epsom salt soaks should also help. The finger splint should help with pain and keeping her finger from bumping into things and stabilize it as well it is certainly possible that part of her discomfort is due to a mild sprain. If she is not improving in the next couple of days do recommend imaging and re-evaluation. She can follow up with her PCP. I hope that she feels better soon. *If you do not have a primary care provider please contact the [facility] Resource line at [phone]. They will ask some questions about your medical history and help get you set up with a doctor in the community. *Return to Emergency Department if you should have any new, worsening or concerning symptoms, such as [fever greater than 101 F, shaking chills, worsening pain, persistent vomiting or other bothersome symptoms] Prescriptions: New cephalexin 500 mg capsule 500 mg PO TID 5 Days Qty: 15 0RF No Action ASPIRIN (Aspir-Low) 81 mg PO Qty: 0 diltiazem HCl 60 MG tablet 60 mg PO QID Qty: 360 1RF metronidazole [Flagyl] 500 MG tablet 500 mg PO TID Qty: 30 0RF ciprofloxacin HCl [Cipro] 500 MG tablet 500 mg PO BID Qty: 20 0RF quetiapine 50 mg tablet 50 - 100 mg PO HS Qty: 60 6RF pravastatin [Pravachol] 20 mg tablet 20 mg PO HS Qty: 30 0RF metoprolol succinate 100 mg tablet extended release 24 hr 100 mg PO QDAY Qty: 30 0RF lisinopril 40 mg tablet 40 mg PO QDAY Qty: 15 0RF Rx Instructions: PT yet to make appt w/PCP.#15 given. Please call clinic to sched appt. LS 10/17/16 Referrals: Omari Feldman MD [Primary Care Provider, Internal Medicine] Stand Alone Forms: Patient Portal/API
[2024-08-12 16:05] VITALS: BP 210/85; PULSE 70; RESP 18; O2SAT 98
== END 2024-08-12 16:12 | disposition home or self-care (01) ==
PROVIDERS: Emergency Provider Student in an Organized Health Care Education/Training Program; PCP Family Medicine
DX: L08.9 Local infection of the skin and subcutaneous tissue, unspecified (principal); M79.644 Pain in right finger(s)
CPT/HCPCS: 29130; 99281; 99282